=== PATIENT | male | born 1990 | race Caucasian/White ===

== ENCOUNTER 2018-03-31 09:07 | Emergency (ER) | payer BC, MEDICAID ==
[~2018-03-31] VITALS: Ht 170.2 cm; Wt 54.5 kg
[2018-03-31 09:21] VITALS: BP 131/83
[2018-03-31 10:08] LABS: BASOPHILS % (AUTO) 0.3 % (0.0-2.0); EOSINOPHILS % (AUTO) 0.8 % (1.0-6.0); HEMATOCRIT 37.8 % (41-53); HEMOGLOBIN 13.5 g/dL (13.5-17.5); LYMPHOCYTES # (AUTO) 1.2 K/uL (1.0-4.8); MEAN CORPUSCULAR HEMOGLOBIN 29.2 pg (26.0-34.0); MEAN CORPUSCULAR HGB CONC 35.8 G/dL (31.0-37.0); MEAN CORPUSCULAR VOLUME 82 fL (80-100); MONOCYTES # (AUTO) 0.4 K/uL (0.1-1.0); MONOCYTES % (AUTO) 7.2 % (2.0-9.0); NEUTROPHILS # (AUTO) 4.5 K/uL (1.8-7.7); NEUTROPHILS % (AUTO) 72.7 % (40.0-70.0); PLATELET COUNT (AUTO) 228 K/uL (150-450); RED BLOOD CELL COUNT(AUTO) 4.63 MIL/uL (4.50-5.90); RED CELL DISTRIBUTION WIDTH 12.6 % (11.5-14.5)
[2018-03-31 10:17] LABS: ANION GAP 7 mmol/L (8-16); CALCIUM, TOTAL 8.7 mg/dL (8.8-10.5); CARBON DIOXIDE 30 mmol/L (22-29); CHLORIDE 103 mmol/L (98-107); CREATININE 0.97 mg/dL (0.60-1.30); GLOMERULAR FILTR. RATE CALC > 60 mL/min (>60); GLUCOSE,RANDOM 118 mg/dL (70-110); POTASSIUM 3.8 mmol/L (3.5-5.1); SODIUM SERUM 140 mmol/L (136-145); UREA NITROGEN, BLOOD 13 mg/dL (7-18)
[2018-03-31 10:21] LABS: AMPHET/METH SCREEN,URINE POSITIVE (NEGATIVE); BARBITURATE SCREEN, URINE NEGATIVE (NEGATIVE); BENZODIAZEPINES SCREEN,URINE NEGATIVE (NEGATIVE); CANNABINOID SCREEN,URINE NEGATIVE (NEGATIVE); COCAINE SCREEN,URINE NEGATIVE (NEGATIVE); METHADONE SCREEN, URINE POSITIVE (NEGATIVE); OPIATE SCREEN,URINE POSITIVE (NEGATIVE)
[2018-03-31 10:22] LABS: PHENCYCLIDINE SCREEN,URINE NEGATIVE (NEGATIVE)
[2018-03-31 10:23] LABS: ALANINE AMINOTRANSFERASE 21 U/L (12-78); ALBUMIN 3.9 g/dL (3.4-5.0); ALKALINE PHOSPHATASE 71 U/L (46-116); ASPARTATE AMINOTRANSFERASE 16 U/L (15-37); BILIRUBIN,TOTAL 0.4 mg/dL (0.1-1.0); TOTAL PROTEIN, SERUM 7.4 g/dL (6.4-8.2)
== END 2018-03-31 11:25 | disposition home or self-care (01) ==
LOC: EMS 09:09
DX: F11.10 Opioid abuse, uncomplicated (principal); F17.210 Nicotine dependence, cigarettes, uncomplicated
CPT/HCPCS: 99284

== ENCOUNTER 2018-04-03 19:30 | Inpatient (IN) | payer MEDICAID ==
[~2018-04-03] VITALS: Ht 170.2 cm; Wt 58.7 kg
[2018-04-03] MEDS ORDERED: HALOPERIDOL 5 MG TABLET PO ONE (20:00)
[2018-04-03 21:12] LABS: BASOPHILS % (AUTO) 0.2 % (0.0-2.0); EOSINOPHILS % (AUTO) 0.6 % (1.0-6.0); HEMATOCRIT 39.8 % (41-53); LYMPHOCYTES # (AUTO) 1.3 K/uL (1.0-4.8); LYMPHOCYTES % (AUTO) 14.4 % (22.0-44.0); MEAN CORPUSCULAR HEMOGLOBIN 29.1 pg (26.0-34.0); MEAN CORPUSCULAR HGB CONC 35.1 G/dL (31.0-37.0); MEAN CORPUSCULAR VOLUME 83 fL (80-100); MONOCYTES # (AUTO) 0.7 K/uL (0.1-1.0); MONOCYTES % (AUTO) 7.6 % (2.0-9.0); NEUTROPHILS # (AUTO) 7.1 K/uL (1.8-7.7); NEUTROPHILS % (AUTO) 77.2 % (40.0-70.0); PLATELET COUNT (AUTO) 233 K/uL (150-450); RED CELL DISTRIBUTION WIDTH 13.2 % (11.5-14.5)
[2018-04-03 21:35] LABS: ANION GAP 6 mmol/L (8-16); CALCIUM, TOTAL 8.8 mg/dL (8.8-10.5); CARBON DIOXIDE 30 mmol/L (22-29); CHLORIDE 101 mmol/L (98-107); CREATININE 0.97 mg/dL (0.60-1.30); GLOMERULAR FILTR. RATE CALC > 60 mL/min (>60); GLUCOSE,RANDOM 96 mg/dL (70-110); POTASSIUM 3.9 mmol/L (3.5-5.1); SODIUM SERUM 137 mmol/L (136-145); UREA NITROGEN, BLOOD 12 mg/dL (7-18)
[2018-04-03 21:41] LABS: ALANINE AMINOTRANSFERASE 22 U/L (12-78); ALKALINE PHOSPHATASE 86 U/L (46-116); ASPARTATE AMINOTRANSFERASE 19 U/L (15-37); BILIRUBIN,TOTAL 0.4 mg/dL (0.1-1.0); TOTAL PROTEIN, SERUM 7.8 g/dL (6.4-8.2)
[2018-04-03] MEDS ORDERED: ZOLPIDEM TARTRATE 10 MG TABLET PO PRN (22:45)
[2018-04-03] MEDS ORDERED: OLANZapine 5 MG RAPDIS TABLET PO PRN (22:45)
[2018-04-03] MEDS ORDERED: LORazepam 2 MG TABLET PO PRN (22:45)
[2018-04-04 00:33] LABS: CHOL/HDL RATIO 1.9 (4.2-7.3); CHOLESTEROL 105 mg/dL (131-200); HDL CHOLESTEROL 55 mg/dL (40-60); LDL CHOL (CALC.) 32 mg/dL (0-130); TRIGLYCERIDES 88 mg/dL (15-150)
[2018-04-04 16:40] VITALS: BP 115/67
[2018-04-04] MEDS ORDERED: PROMETHAZINE HCL 25 MG TABLET PO PRN (17:00)
[2018-04-04] MEDS ORDERED: TUBERCULIN, PURIFIED PROTEIN DERIVATIVE 5 TU/0.1 ML SYG ID ONE (17:00)
[2018-04-04] MEDS ORDERED: MAGNESIUM HYDROXIDE SUSPENSION 30 ML UDCUP PO PRN (17:00)
[2018-04-04] MEDS ORDERED: MAG HYDROX/AL HYDROX/SIMETH ES 30 ML SUSPENSION UDCUP PO PRN ×2 (17:00→17:45)
[2018-04-04] MEDS ORDERED: HydrOXYzine PAMOATE 50 MG CAPSULE PO PRN ×2 (17:00→17:45)
[2018-04-04] MEDS ORDERED: LOPERAMIDE HCL 2 MG CAPSULE PO PRN (17:00)
[2018-04-04] MEDS ORDERED: ACETAMINOPHEN 325 MG TABLET PO PRN (17:00)
[2018-04-04] MEDS ORDERED: GuaiFENesin/D-METHORPHAN [SUGAR-FREE] 200-20MG/10 ML SYRUP UDCUP PO PRN (17:00)
[2018-04-04 17:40] VITALS: BP 111/60
[2018-04-04] MEDS ORDERED: IBUPROFEN 600 MG TABLET PO PRN ×2 (17:45→18:30)
[2018-04-04] MEDS ORDERED: CloNIDine HCL 0.1 MG TABLET PO PRN ×2 (17:45→18:30)
[2018-04-04] MEDS ORDERED: BENZOCAINE/MENTHOL LOZENGE MM PRN (18:30)
[2018-04-04] MEDS ORDERED: PETROLATUM,WHITE 71 GM JELLY TP PRN (18:30)
[2018-04-04] MEDS ORDERED: BACITRACIN 28.4 GM OINTMENT TP PRN (18:30)
[2018-04-04] MEDS ORDERED: ALBUTEROL SULFATE HFA 90 MCG/PUFF 8 GM INHALER IH PRN (18:30)
[2018-04-04 18:52] VITALS: BP 113/64
[2018-04-04 20:09] VITALS: BP 109/53
[2018-04-04] MEDS ORDERED: OLANZapine 10 MG RAPDIS TABLET PO SCH (21:00)
[2018-04-04] MEDS: THIAMINE HCL 100 MG TABLET PO SCH (21:14)
[2018-04-04] MEDS: GABAPENTIN 100 MG CAPSULE PO SCH (21:14)
[2018-04-04 22:51] VITALS: BP 101/46
[2018-04-04] MEDS: CloNIDine HCL 0.1 MG TABLET PO SCH (22:52)
[2018-04-05] MEDS: CloNIDine HCL 0.1 MG TABLET PO SCH (06:00)
[2018-04-05 06:47] VITALS: BP 104/56
[2018-04-05] MEDS: DOCUSATE SODIUM 100 MG CAPSULE PO SCH ×2 (09:00→11:01)
[2018-04-05 10:00] VITALS: BP 108/65
[2018-04-05] MEDS: METHADONE HCL 10 MG TABLET PO SCH (10:16)
[2018-04-05] MEDS: FOLIC ACID 1 MG TABLET PO SCH (11:00)
[2018-04-05] MEDS: DULoxetine HCL 20 MG CAPSULE PO SCH (11:00)
[2018-04-05] MEDS: MULTIVITAMINS WITH MINERALS, THERAPEUTIC TABLET PO SCH (11:01)
[2018-04-05] MEDS: THIAMINE HCL 100 MG TABLET PO SCH ×2 (11:01→20:25)
[2018-04-05] MEDS: DISULFIRAM 250 MG TABLET PO SCH (11:01)
[2018-04-05] MEDS: GABAPENTIN 100 MG CAPSULE PO SCH (11:02)
[2018-04-05] MEDS: ONDANSETRON HCL 4 MG/2 ML VIAL IM PRN ×2 (12:14→20:34)
[2018-04-05] MEDS: GABAPENTIN 300 MG CAPSULE PO SCH ×3 (13:45→20:25)
[2018-04-05 16:31] VITALS: BP 114/73
[2018-04-05 20:05] VITALS: BP 115/55
[2018-04-05] MEDS ORDERED: OLANZapine 5 MG RAPDIS TABLET PO SCH (21:00)
[2018-04-06] MEDS: DOCUSATE SODIUM 100 MG CAPSULE PO SCH (09:11)
[2018-04-06] MEDS: THIAMINE HCL 100 MG TABLET PO SCH (09:12)
[2018-04-06] MEDS: DULoxetine HCL 20 MG CAPSULE PO SCH (09:13)
[2018-04-06] MEDS: MULTIVITAMINS WITH MINERALS, THERAPEUTIC TABLET PO SCH (09:13)
[2018-04-06] MEDS: DISULFIRAM 250 MG TABLET PO SCH (09:13)
[2018-04-06] MEDS: METHADONE HCL 10 MG TABLET PO SCH (09:14)
[2018-04-06] MEDS: NICOTINE 21 MG/24 HOUR PATCH TD SCH (09:14)
[2018-04-06] MEDS: FOLIC ACID 1 MG TABLET PO SCH (09:15)
[2018-04-06] MEDS: GABAPENTIN 300 MG CAPSULE PO SCH ×2 (09:16→13:09)
[2018-04-06 10:14] VITALS: BP 144/74
[2018-04-06] MEDS: GABAPENTIN 400 MG CAPSULE PO SCH ×2 (16:08→20:41)
[2018-04-06 19:16] VITALS: BP 105/58
[2018-04-06 20:39] VITALS: BP 120/72
[2018-04-06] MEDS: OLANZapine 10 MG RAPDIS TABLET PO SCH (20:41)
[2018-04-07 00:49] VITALS: BP 118/70
[2018-04-07 08:53] VITALS: BP 102/60
[2018-04-07] MEDS: METHADONE HCL 10 MG TABLET PO SCH (08:58)
[2018-04-07] MEDS: FOLIC ACID 1 MG TABLET PO SCH (08:59)
[2018-04-07] MEDS: GABAPENTIN 400 MG CAPSULE PO SCH ×4 (08:59→21:00)
[2018-04-07] MEDS: DULoxetine HCL 20 MG CAPSULE PO SCH (08:59)
[2018-04-07] MEDS: DISULFIRAM 250 MG TABLET PO SCH (08:59)
[2018-04-07] MEDS: DOCUSATE SODIUM 100 MG CAPSULE PO SCH (08:59)
[2018-04-07] MEDS: MULTIVITAMINS WITH MINERALS, THERAPEUTIC TABLET PO SCH (08:59)
[2018-04-07] MEDS: THIAMINE HCL 100 MG TABLET PO SCH ×2 (09:00→16:10)
[2018-04-07] MEDS: NICOTINE 21 MG/24 HOUR PATCH TD SCH (09:00)
[2018-04-07] MEDS ORDERED: DISU250 PO (11:57)
[2018-04-07] MEDS ORDERED: DSS100 PO (12:13)
[2018-04-07] MEDS: OLANZapine 10 MG RAPDIS TABLET PO SCH (21:00)
[2018-04-08 06:19] VITALS: BP 105/68
[2018-04-08 08:26] VITALS: BP 103/60
[2018-04-08] MEDS: MULTIVITAMINS WITH MINERALS, THERAPEUTIC TABLET PO SCH (09:15)
[2018-04-08] MEDS: FOLIC ACID 1 MG TABLET PO SCH (09:15)
[2018-04-08] MEDS: GABAPENTIN 400 MG CAPSULE PO SCH ×4 (09:15→20:05)
[2018-04-08] MEDS: DULoxetine HCL 20 MG CAPSULE PO SCH (09:15)
[2018-04-08] MEDS: THIAMINE HCL 100 MG TABLET PO SCH ×2 (09:15→16:22)
[2018-04-08] MEDS: DOCUSATE SODIUM 100 MG CAPSULE PO SCH (09:15)
[2018-04-08] MEDS: NICOTINE 21 MG/24 HOUR PATCH TD SCH (09:16)
[2018-04-08] MEDS: METHADONE HCL 10 MG TABLET PO SCH (09:16)
[2018-04-08] MEDS: DISULFIRAM 250 MG TABLET PO SCH (09:19)
[2018-04-08 17:20] VITALS: BP 96/84
[2018-04-08] MEDS: OLANZapine 10 MG RAPDIS TABLET PO SCH (20:06)
[2018-04-08 21:19] VITALS: BP 122/77
[2018-04-09] VITALS: BP 123/76
[2018-04-09 08:10] VITALS: BP 132/75
[2018-04-09] MEDS: DISULFIRAM 250 MG TABLET PO SCH (09:48)
[2018-04-09] MEDS: DULoxetine HCL 20 MG CAPSULE PO SCH (09:49)
[2018-04-09] MEDS: THIAMINE HCL 100 MG TABLET PO SCH ×2 (09:49→16:43)
[2018-04-09] MEDS: FOLIC ACID 1 MG TABLET PO SCH (09:49)
[2018-04-09] MEDS: GABAPENTIN 400 MG CAPSULE PO SCH ×4 (09:49→20:18)
[2018-04-09] MEDS: METHADONE HCL 10 MG TABLET PO SCH (09:49)
[2018-04-09] MEDS: MULTIVITAMINS WITH MINERALS, THERAPEUTIC TABLET PO SCH (09:49)
[2018-04-09] MEDS: DOCUSATE SODIUM 100 MG CAPSULE PO SCH (09:49)
[2018-04-09] MEDS: NICOTINE 21 MG/24 HOUR PATCH TD SCH (09:50)
[2018-04-09 16:10] VITALS: BP 123/76
[2018-04-09] MEDS: OLANZapine 10 MG RAPDIS TABLET PO SCH (20:18)
[2018-04-10 01:06] VITALS: BP 128/75
[2018-04-10 08:12] VITALS: BP 133/70
[2018-04-10 08:15] LABS: BASOPHILS % (AUTO) 0.5 % (0.0-2.0); EOSINOPHILS % (AUTO) 6.4 % (1.0-6.0); HEMOGLOBIN 13.1 g/dL (13.5-17.5); LYMPHOCYTES % (AUTO) 37.9 % (22.0-44.0); MEAN CORPUSCULAR HEMOGLOBIN 28.8 pg (26.0-34.0); MEAN CORPUSCULAR HGB CONC 34.6 G/dL (31.0-37.0); MEAN CORPUSCULAR VOLUME 83 fL (80-100); MONOCYTES # (AUTO) 0.3 K/uL (0.1-1.0); MONOCYTES % (AUTO) 6.5 % (2.0-9.0); NEUTROPHILS # (AUTO) 2.6 K/uL (1.8-7.7); NEUTROPHILS % (AUTO) 48.7 % (40.0-70.0); PLATELET COUNT (AUTO) 235 K/uL (150-450); RED BLOOD CELL COUNT(AUTO) 4.56 MIL/uL (4.50-5.90); RED CELL DISTRIBUTION WIDTH 12.8 % (11.5-14.5)
[2018-04-10 08:36] LABS: APPEARANCE,URINE CLEAR (CLEAR); BILIRUBIN,URINE NEGATIVE (NEGATIVE); GLUCOSE, URINE (UA) NEGATIVE (NEGATIVE); KETONES,URINE NEGATIVE (NEGATIVE); LEUKOCYTE ESTERASE ,URINE NEGATIVE (NEGATIVE); NITRATE,URINE NEGATIVE (NEGATIVE); OCCULT BLOOD,URINE NEGATIVE (NEGATIVE); PROTEIN,URINE NEGATIVE (NEGATIVE); UROBILINOGEN,URINE 0.2 mg/dL (<=1.0)
[2018-04-10] MEDS: MULTIVITAMINS WITH MINERALS, THERAPEUTIC TABLET PO SCH (09:15)
[2018-04-10] MEDS: DOCUSATE SODIUM 100 MG CAPSULE PO SCH (09:15)
[2018-04-10] MEDS: FOLIC ACID 1 MG TABLET PO SCH (09:16)
[2018-04-10] MEDS: THIAMINE HCL 100 MG TABLET PO SCH ×2 (09:16→16:52)
[2018-04-10] MEDS: DULoxetine HCL 20 MG CAPSULE PO SCH (09:16)
[2018-04-10] MEDS: GABAPENTIN 400 MG CAPSULE PO SCH ×4 (09:20→20:23)
[2018-04-10] MEDS: NICOTINE 21 MG/24 HOUR PATCH TD SCH (09:23)
[2018-04-10] MEDS: METHADONE HCL 10 MG TABLET PO SCH (09:23)
[2018-04-10 09:46] LABS: BACTERIA,URINE None Seen /HPF (None Seen); CALCIUM OXALATE CRYSTALS,UR Moderate /LPF (None Seen); RBC,URINE None Seen /HPF (0-2); SQUAMOUS EPITHELIAL CELL,UR Rare /LPF (None Seen); WBC,URINE None Seen /HPF (0-5)
[2018-04-10] MEDS: DISULFIRAM 250 MG TABLET PO SCH (10:06)
[2018-04-10 16:00] VITALS: BP 117/72
[2018-04-10] MEDS: OLANZapine 10 MG RAPDIS TABLET PO SCH (20:24)
[2018-04-11 06:13] VITALS: BP 121/62
[2018-04-11 08:26] VITALS: BP 124/66
[2018-04-11] MEDS: FOLIC ACID 1 MG TABLET PO SCH (09:29)
[2018-04-11] MEDS: GABAPENTIN 400 MG CAPSULE PO SCH ×2 (09:29→12:50)
[2018-04-11] MEDS: DOCUSATE SODIUM 100 MG CAPSULE PO SCH (09:29)
[2018-04-11] MEDS: METHADONE HCL 10 MG TABLET PO SCH (09:29)
[2018-04-11] MEDS: MULTIVITAMINS WITH MINERALS, THERAPEUTIC TABLET PO SCH (09:29)
[2018-04-11] MEDS: THIAMINE HCL 100 MG TABLET PO SCH (09:29)
[2018-04-11] MEDS: DISULFIRAM 250 MG TABLET PO SCH (09:30)
[2018-04-11] MEDS: NICOTINE 21 MG/24 HOUR PATCH TD SCH (09:31)
[2018-04-11] MEDS: DULoxetine HCL 20 MG CAPSULE PO SCH (09:32)
[2018-04-11] MEDS ORDERED: GABA-533 PO (12:49)
[2018-04-11] MEDS ORDERED: OLAN10TA6 PO (12:49)
[2018-04-11] MEDS ORDERED: DULO20CA30 PO (12:49)
== END 2018-04-11 20:05 | disposition home or self-care (01) | DRG 885 ==
LOC: EMS 20:16 → AHU 04-04 15:32 → B2S 04-06 19:50
PROVIDERS: ADMIT Psychiatry & Neurology Psychiatry; ATTEND Psychiatry & Neurology Psychiatry
DX: F33.3 Major depressive disorder, recurrent, severe with psychotic symptoms (principal); R45.851 Suicidal ideations; F11.10 Opioid abuse, uncomplicated; F15.10 Other stimulant abuse, uncomplicated; F17.210 Nicotine dependence, cigarettes, uncomplicated; F41.9 Anxiety disorder, unspecified; G47.00 Insomnia, unspecified; K59.00 Constipation, unspecified; Z91.14 Patient's other noncompliance with medication regimen; Z59.0 Homelessness; Z72.89 Other problems related to lifestyle; Z71.41 Alcohol abuse counseling and surveillance of alcoholic; Z71.6 Tobacco abuse counseling; Z71.51 Drug abuse counseling and surveillance of drug abuser; Z79.899 Other long term (current) drug therapy
CPT/HCPCS: 99285; G0480; J2405

== ENCOUNTER 2018-05-27 01:55 | Inpatient (IN) | payer MEDICAID, OTHER ==
[~2018-05-27] VITALS: Ht 170.2 cm; Wt 55.3 kg
[~2018-05-27 01:55] MED LIST: DISU250 PO; DULO20CA30 PO; GABA-533 PO; OLAN10TA6 PO
[2018-05-27 04:36] LABS: ANION GAP 8 mmol/L (8-16); BASOPHILS % (AUTO) 0.5 % (0.0-2.0); CALCIUM, TOTAL 9.1 mg/dL (8.8-10.5); CARBON DIOXIDE 31 mmol/L (22-29); CHLORIDE 100 mmol/L (98-107); CREATININE 0.94 mg/dL (0.60-1.30); EOSINOPHILS % (AUTO) 2.9 % (1.0-6.0); GLOMERULAR FILTR. RATE CALC > 60 mL/min (>60); GLUCOSE,RANDOM 100 mg/dL (70-110); HEMATOCRIT 39.4 % (41-53); HEMOGLOBIN 13.6 g/dL (13.5-17.5); LYMPHOCYTES # (AUTO) 1.4 K/uL (1.0-4.8); LYMPHOCYTES % (AUTO) 20.5 % (22.0-44.0); MEAN CORPUSCULAR HEMOGLOBIN 28.9 pg (26.0-34.0); MEAN CORPUSCULAR HGB CONC 34.6 G/dL (31.0-37.0); MEAN CORPUSCULAR VOLUME 84 fL (80-100); MONOCYTES # (AUTO) 0.8 K/uL (0.1-1.0); MONOCYTES % (AUTO) 11.5 % (2.0-9.0); NEUTROPHILS # (AUTO) 4.3 K/uL (1.8-7.7); NEUTROPHILS % (AUTO) 64.6 % (40.0-70.0); PLATELET COUNT (AUTO) 263 K/uL (150-450); POTASSIUM 4.1 mmol/L (3.5-5.1); RED BLOOD CELL COUNT(AUTO) 4.72 MIL/uL (4.50-5.90); RED CELL DISTRIBUTION WIDTH 13.2 % (11.5-14.5); SODIUM SERUM 139 mmol/L (136-145); UREA NITROGEN, BLOOD 15 mg/dL (7-18)
[2018-05-27 04:43] LABS: ALANINE AMINOTRANSFERASE 19 U/L (12-78); ALBUMIN 3.7 g/dL (3.4-5.0); ALKALINE PHOSPHATASE 95 U/L (46-116); ASPARTATE AMINOTRANSFERASE 15 U/L (15-37); BILIRUBIN,TOTAL 0.4 mg/dL (0.1-1.0); TOTAL PROTEIN, SERUM 7.7 g/dL (6.4-8.2)
[2018-05-27] MEDS ORDERED: ZOLPIDEM TARTRATE 10 MG TABLET PO PRN (06:30)
[2018-05-27] MEDS ORDERED: LORazepam 2 MG TABLET PO PRN (06:30)
[2018-05-27] MEDS ORDERED: HALOPERIDOL 5 MG TABLET PO PRN (06:30)
[2018-05-27 16:53] VITALS: BP 111/60
[2018-05-27] MEDS ORDERED: PNEUMOCOCCAL VACCINE POLYVALENT 0.5 ML VIAL [PPSV23] IM ONE (17:45)
[2018-05-27] MEDS ORDERED: ALBUTEROL SULFATE HFA 90 MCG/PUFF 8 GM INHALER IH PRN (19:45)
[2018-05-27] MEDS ORDERED: LOPERAMIDE HCL 2 MG CAPSULE PO PRN (19:45)
[2018-05-27] MEDS ORDERED: BENZOCAINE/MENTHOL LOZENGE MM PRN (19:45)
[2018-05-27] MEDS ORDERED: BACITRACIN 28.4 GM OINTMENT TP PRN (19:45)
[2018-05-27] MEDS ORDERED: PETROLATUM,WHITE 71 GM JELLY TP PRN (19:45)
[2018-05-27] MEDS ORDERED: MAGNESIUM HYDROXIDE SUSPENSION 30 ML UDCUP PO PRN (19:45)
[2018-05-27] MEDS ORDERED: MAG HYDROX/AL HYDROX/SIMETH ES 30 ML SUSPENSION UDCUP PO PRN (19:45)
[2018-05-27] MEDS ORDERED: ONDANSETRON HCL 4 MG TABLET PO PRN (19:45)
[2018-05-27] MEDS ORDERED: IBUPROFEN 600 MG TABLET PO PRN (19:45)
[2018-05-27] MEDS ORDERED: ACETAMINOPHEN 325 MG TABLET PO PRN (19:45)
[2018-05-27] MEDS ORDERED: CloNIDine HCL 0.1 MG TABLET PO PRN (19:45)
[2018-05-27] MEDS: GABAPENTIN 400 MG CAPSULE PO SCH (20:11)
[2018-05-28] VITALS: BP 101/64
[2018-05-28 08:13] VITALS: BP 100/60
[2018-05-28] MEDS: OMEPRAZOLE 20 MG CAPSULE PO SCH (09:33)
[2018-05-28] MEDS: DOCUSATE SODIUM 100 MG CAPSULE PO SCH (09:33)
[2018-05-28] MEDS: GABAPENTIN 400 MG CAPSULE PO SCH ×4 (09:33→20:16)
[2018-05-28] MEDS: HYDROCORTISONE 1% 30 GM OINTMENT TP SCH ×3 (09:34→16:36)
[2018-05-28 09:37] LABS: HEMOGLOBIN A1C 5.2 % (4.5-6.2)
[2018-05-28] MEDS: DULoxetine HCL 20 MG CAPSULE PO SCH (11:44)
[2018-05-28] MEDS: METHADONE HCL 10 MG/5 ML SOLUTION ORAL.SYG PO SCH (11:52)
[2018-05-28 12:35] LABS: FREE T4 (FREE THYROXINE) 1.06 ng/dL (0.76-1.46); THYROID STIMULATING HORMONE 1.16 uIU/mL (0.36-3.74)
[2018-05-28] MEDS ORDERED: GABAPENTIN 400 MG CAPSULE PO SCH (13:00)
[2018-05-28 18:06] VITALS: BP 103/64
[2018-05-28] MEDS ORDERED: OLANZapine 10 MG TABLET PO SCH (21:00)
[2018-05-29 05:46] VITALS: BP 100/58
[2018-05-29 09:44] LABS: GLUCOSE,POINT OF CARE 110 MG/DL (70-110)
[2018-05-29] MEDS: GABAPENTIN 400 MG CAPSULE PO SCH ×3 (11:00→17:00)
[2018-05-29] MEDS: HYDROCORTISONE 1% 30 GM OINTMENT TP SCH ×3 (11:00→17:00)
[2018-05-29] MEDS: METHADONE HCL 10 MG/5 ML SOLUTION ORAL.SYG PO SCH (11:00)
[2018-05-29] MEDS: DOCUSATE SODIUM 100 MG CAPSULE PO SCH (11:00)
[2018-05-29] MEDS: OMEPRAZOLE 20 MG CAPSULE PO SCH (11:00)
[2018-05-29] MEDS: DULoxetine HCL 20 MG CAPSULE PO SCH (11:00)
[2018-05-29] MEDS ORDERED: MAG HYDROX/AL HYDROX/SIMETH ES 30 ML SUSPENSION UDCUP PO PRN (13:45)
[2018-05-29] MEDS ORDERED: IBUPROFEN 600 MG TABLET PO PRN (13:45)
[2018-05-29] MEDS ORDERED: HydrOXYzine PAMOATE 50 MG CAPSULE PO PRN (13:45)
[2018-05-29] MEDS ORDERED: CloNIDine HCL 0.1 MG TABLET PO PRN (13:45)
[2018-05-29] MEDS ORDERED: CloNIDine HCL 0.1 MG TABLET PO SCH (17:00)
[2018-05-30] MEDS ORDERED: METHADONE HCL 10 MG TABLET PO SCH (09:00)
[2018-05-30] MEDS ORDERED: METH10SO PO (11:16)
== END 2018-05-29 20:45 | disposition short-term general hospital (02) | DRG 750 ==
LOC: EMS 01:56 → B2S 15:01
PROVIDERS: ADMIT Psychiatry & Neurology Psychiatry; ATTEND Psychiatry & Neurology Psychiatry
DX: F20.0 Paranoid schizophrenia (principal); F11.20 Opioid dependence, uncomplicated; F32.9 Major depressive disorder, single episode, unspecified; F17.200 Nicotine dependence, unspecified, uncomplicated; G47.00 Insomnia, unspecified; K59.00 Constipation, unspecified; L30.9 Dermatitis, unspecified; F15.10 Other stimulant abuse, uncomplicated; F41.9 Anxiety disorder, unspecified; Z79.899 Other long term (current) drug therapy
CPT/HCPCS: 83036; 84439; 84443; 90471; 99285; G0480